=== PATIENT | female | born 1980 | race Caucasian/White ===

== ENCOUNTER 2020-06-12 17:51 | Emergency (ER) | payer OTHER ==
[~2020-06-12] VITALS: Ht 160 cm; Wt 94.9 kg
[2020-06-12 18:07] VITALS: BP 137/80
[2020-06-12] MEDS ORDERED: ACETAMINOPHEN 325 MG TABLET PO ONE (19:00)
--- NOTE | 2020-06-12 19:21 | RAD ---
Exam: Right ankle 3 views INDICATION: Right lateral malleolus TECHNIQUE: Frontal, lateral and oblique views of the right ankle. Comparisons: None FINDINGS: Bone mineralization is normal. No acute or healed fractures. Soft tissues are unremarkable. Joint spaces are well-maintained. IMPRESSION: No acute osseous abnormality. Electronically signed by: Rufus Pedro MD (06/12/2020 7:18 PM) [facility]
--- NOTE | 2020-06-12 20:15 | PHYS DOC ---
Past History Past Medical History: No Pertinent History Past Surgical History: Other Additional Past Surgical Histo: WISDOM TEETH, TUBES IN EARS Alcohol Use: Rarely Adult General Chief Complaint Chief Complaint: FOOT INJURY PAIN HPI HPI Patient is a 40-year-old female who presents via POV for right foot pain. Patient reports onset was earlier today while at work. 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 This pain waxed and waned throughout the day without any obvious or known provocation factors. Patient took Advil at home with minimal relief in symptomology. She does report being extremely active and has been training for a running race recently, she admits steadily increasing her weekly miles ran. Patient has no neurologic findings, changes in motor or sensory function, mildly decreased range of motion due to pain otherwise no other concerning findings Review of Systems Review of Systems Fourteen body systems of review of systems have been reviewed. See HPI for pertinent positives and negative responses, other dee all other systems are negative, non-pertinent or non-contributory Current Medications Current Medications Current Medications Medications (Trade) Dose Ordered Sig/Mary Alice Start Time Stop Time Status Last Admin Dose Admin Acetaminophen (Tylenol) 650 mg 1X ONCE 06/12/20 19:00 06/12/20 19:37 DC 06/12/20 19:25 650 MG Physical Exam Physical Exam Constitutional: Well developed, well nourished, no acute distress, non-toxic appearance. HENT: Normocephalic, atraumatic, bilateral external ears normal, oropharynx moist, no oral exudates, nose normal. Eyes: PERRLA, EOMI, conjunctiva normal, no discharge. Neck: Normal range of motion, no tenderness, supple, no stridor. Cardiovascular: Heart rate regular, sinus rhythm, no murmurs rubs or gallops Lungs & Thorax: Bilateral breath sounds clear to auscultation Abdomen: Bowel sounds normal, soft, no tenderness, no masses, no pulsatile masses. Nonsurgical abdomen, no peritoneal signs Skin: Warm, dry, no erythema, no rash. Back: No tenderness, no CVA tenderness. Extremities: No cyanosis, no clubbing, ROM intact, no edema. Foot and Ankle Proximal Tibia nontender Medial malleolus nontender Right lateral malleolus tender to palpation Calcaneus nontender Tarsometatarsal region nontender Base of 5th nontender Rest of foot and ankle without marked tenderness Varus and Valgus Stress of ankle joint without significant laxity Full Range of Motion with full strength Skin on plantar section of midfoot without ecchymosis Capillary refill <2seconds and distal Sensation to light touch in tact per routine Compartments surrounding are soft Neurologic: Alert and oriented X 3, grossly normal motor & sensory function, no focal deficits noted. Psychologic: Affect normal, judgement normal, mood normal. Current Patient Data Vital Signs Vital Signs Date Time Temp Pulse Resp B/P (MAP) Pulse Ox O2 Delivery O2 Flow Rate FiO2 06/12/20 18:07 97.2 90 18 137/80 (99) 96 Room Air EKG EKG [] Radiology/Procedures Radiology/Procedures PROCEDURE: ANKLE RIGHT 3V Exam: Right ankle 3 views INDICATION: Right lateral malleolus TECHNIQUE: Frontal, lateral and oblique views of the right ankle. Comparisons: None FINDINGS: Bone mineralization is normal. No acute or healed fractures. Soft tissues are unremarkable. Joint spaces are well-maintained. IMPRESSION: No acute osseous abnormality. Electronically signed by: Rufus Pedro MD (06/12/2020 7:18 PM) [facility] Course & Med Decision Making Course & Med Decision Making Overall well-appearing ambulatory patient seen on ER arrival ABCs nonconcerning Comprehensive history and physical exam obtained, [place] ankle rule positive prompting radiographs that were ultimately negative Discussed most likely diagnosis of ankle sprain versus strain that is musculoskeletal in nature, low risk for any acute bony abnormalities or other concerning pathology I advised patient for continued supportive care at home with close PCP follow-up in outpatient setting with consideration for physical therapy Strict return precautions were discussed with good understanding by patient, all questions and concerns addressed prior to ER departure in stable condition Dragon Disclaimer Dragon Disclaimer This electronic medical record was generated, in whole or in part, using a voice recognition dictation system. Departure Departure: Impression: Primary Impression: Right ankle injury Disposition: 01 DC HOME SELF CARE/HOMELESS Condition: STABLE Referrals: PCP,NO (PCP) Patient Instructions: Ankle Exercises (for Rehabilitation), RICE - Routine Care for Injuries Additional Instructions: As discussed prior to ER departure, please call your primary care physician first thing tomorrow morning to schedule outpatient follow-up in upcoming 3 to 7 days Please continue outpatient supportive care and exercises as instructed If concerning signs or symptoms present prior to seeing your primary care physician, please do not hesitate to call our ER and/or represent for formal evaluation It was a pleasure to take care of you this evening and I wish you a speedy recov sara! YOHAN CONTRERAS DO Jun 12, 2020 20:15
== END 2020-06-12 20:20 | disposition home or self-care (01) ==
LOC: ER 17:51
DX: S99.911A Unspecified injury of right ankle, initial encounter (principal); X50.9XXA Other and unspecified overexertion or strenuous movements or postures, initial encounter; Y93.89 Activity, other specified; Y92.89 Other specified places as the place of occurrence of the external cause; Y99.0 Civilian activity done for income or pay
CPT/HCPCS: 73610; 99283

== ENCOUNTER 2020-09-28 16:40 | Emergency (ER) | payer OTHER ==
[~2020-09-28] VITALS: Ht 160 cm; Wt 91.8 kg
[2020-09-28 17:34] VITALS: BP 137/97
[2020-09-28] MEDS ORDERED: CYCL-331 PO (18:19)
--- NOTE | 2020-09-28 18:19 | PHYS DOC ---
Past History Past Medical History: Anxiety, Fibromyalgia (ABBY LEONG APRN) Past Surgical History: No Surgical History Additional Past Surgical Histo: WISDOM TEETH, TUBES IN EARS (ABBY LEONG APRN) Alcohol Use: None (ABBY LEONG APRN) General Adult EDM: Chief Complaint: LOWER EXT PAIN HPI: HPI: Patient is a 40-year-old female presents with left lower calf pain. Patient states that pain started today. Denies injury to left leg. No swelling or redness to the area. Patient states that she was outside with her dog when all of a sudden she had a sharp pain in her left calf. Patient states that she has not been unable to bear weight since then. Patient reports taking ibuprofen this morning for pain with little relief. (ABBY LEONG APRN) Review of Systems: Review of Systems: Constitutional: Denies fever or chills Eyes: Denies change in visual acuity HENT: Denies nasal congestion or sore throat Respiratory: Denies cough or shortness of breath Cardiovascular: Denies chest pain or edema GI: Denies abdominal pain, nausea, vomiting, bloody stools or diarrhea : Denies dysuria Musculoskeletal: Left calf pain, no redness, no swelling Integument: Denies rash Neurologic: Denies headache, focal weakness or sensory changes Endocrine: Denies polyuria or polydipsia Lymphatic: Denies swollen glands Psychiatric: Denies depression or anxiety (ABBY LEONG APRN) Physical Exam: PE: Constitutional: Well developed, well nourished, no acute distress, non-toxic appearance. [] HENT: Normocephalic, atraumatic, bilateral external ears normal, oropharynx moist, no oral exudates, nose normal. [] Eyes: PERRLA, EOMI, conjunctiva normal, no discharge. [] Neck: Normal range of motion, no tenderness, supple, no stridor. [] Cardiovascular:Heart rate regular rhythm, no murmur [] Lungs & Thorax: Bilateral breath sounds clear to auscultation [] Abdomen: Bowel sounds normal, soft, no tenderness, no masses, no pulsatile masses. [] Skin: Warm, dry, no erythema, no rash. [] Back: No tenderness, no CVA tenderness. [] Extremities: No tenderness, no cyanosis, no clubbing, ROM intact, no edema. [] Neurologic: Alert and oriented X 3, normal motor function, normal sensory function, no focal deficits noted. [] Psychologic: Affect normal, judgement normal, mood normal. [] (ABBY LEONG APRN) Current Patient Data: Vital Signs: Vital Signs Date Time Temp Pulse Resp B/P (MAP) Pulse Ox O2 Delivery O2 Flow Rate FiO2 09/28/20 17:34 98.1 79 16 137/97 (110) 98 (ABBY LEONG APRN) EKG: EKG: [] (ABBY LEONG APRN) Radiology/Procedures: Radiology/Procedures: [] (ABBY LEONG APRN) Heart Score: Risk Factors: Risk Factors: DM, Current or recent (<one month) smoker, HTN, HLP, family history of CAD, obesity. Risk Scores: Score 0 - 3: 2.5% MACE over next 6 weeks - Discharge Home Score 4 - 6: 20.3% MACE over next 6 weeks - Admit for Clinical Observation Score 7 - 10: 72.7% MACE over next 6 weeks - Early Invasive Strategies (ABBY LEONG APRN) Course & Med Decision Making: Course & Med Decision Making Pertinent Labs and Imaging studies reviewed. (See chart for details) [ Patient is a 40-year-old female presents with left lower calf pain. Patient states that pain started today. Denies injury to left leg. No swelling or redness to the area. Patient states that she was outside with her dog when all of a sudden she had a sharp pain in her left calf. Patient states that she has not been unable to bear weight since then. Patient reports taking ibuprofen this morning for pain with little relief. No swelling, no redness. Patient denies injury to area. Send home with rice instructions, crutches, Flexeril for muscle strain. Take ibuprofen and Tylenol for discomfort.] (ABBY LEONG APRN) Dragon Disclaimer: Dragon Disclaimer: This electronic medical record was generated, in whole or in part, using a voice recognition dictation system. (ABBY LEONG APRN) Departure Departure: Impression: Primary Impression: Muscle strain Disposition: 01 DC HOME SELF CARE/HOMELESS Condition: GOOD Referrals: LIANET BENJAMIN DO (PCP) Patient Instructions: Muscle Strain, [id number] Additional Instructions: You were seen in the emergency room for left calf pain. Please make sure to rest, elevate, and ice to area. Ibuprofen and Tylenol for discomfort and pain. I am sending you home with Flexeril to help with pain as well. Please return the emergency room with worsening symptoms or concerns such as increase in pain, swelling and redness to area. EMERGENCY DEPARTMENT GENERAL DISCHARGE INSTRUCTIONS Thank you for coming to [facility] (ED) today and trusting us with you care. We trust that you had a positivie experience in our Emergency Department. If you wish to speak to the department management, you may call the director at [phone]. YOUR FOLLOW UP INSTRUCTIONS ARE FOLLOWS: 1. Do you have a private Doctor? If you do not have a private doctor, please ask for a resource list of physicians or clinics that may be able to assist you with follow up care. 2. The Emergency Physician has interpreted your x-rays. The X-Ray specialist will also review them. If there is a change in the findings, you will be notified in 48 hours when at all possible. 3. A lab test or culture has been done, your results will be reviewed and you will be notified if you need a change in treatment. ADDITIONAL INSTRUCTIONS AND INFORMATION: 1. Your care today has been supervised by a physician who is specially trained in emergency care. Many problems require more than one evaluation for a complete diagnosis and treatment. We recommend that you schedule your follow up appointment as recommended to ensure complete treatment of you illness or injury. If you are unable to obtain follow up care and continue to have a problem, or if your condition worsens, we recommend that you return to the ED. 2. We are not able to safely determine your condition over the phone nor are we able to give sound medical advice over the phone. For these safety reasons, if you call for medical advice we will ask you to come to the ED for further evaluation. 3. If you have any questions regarding these discharge instructions please call the ED at [phone]. SAFETY INFORMATION: In the interest of safety, wellness, and injury prevention; we encourage you to wear your sealbelt, if you smoke; quite smoking, and we encourage family to use a protective helmet for bicycling and other sporting events that present an increased risk for head injury. IF YOUR SYMPTOMS WORSEN OR NEW SYMPTOMS DEVELOP, OR YOU HAVE CONCERNS ABOUT YOUR CONDITION; OR IF YOUR CONDITION WORSENS WHILE YOU ARE WAITING FOR YOUR FOLLOW UP APPOINTMENT; EITHER CONTACT YOUR PRIMARY CARE DOCTOR, THE PHYSICIAN WHOSE NAME AND NUMBER YOU WERE GIVEN, OR RETURN TO THE ED IMMEDIATELY. Scripts Cyclobenzaprine Hcl (CYCLOBENZAPRINE HCL) 10 Mg Tablet 10 MG PO TID PRN PRN for PAIN for 7 Days, TAB Prov: ABBY LEONG APRN 09/28/20 Attending Signature Attending Signature I have reviewed the PA/COMMUTATOR INSPECTOR's note and plan of care. I was available for consultation as needed during the patient's visit in the emergency department. I agree with the clinical impression, plan, and disposition. (JACINTO CAVAZOS DO) ABBY LEONG APRN Sep 28, 2020 18:19 JACINTO CAVAZOS DO Sep 29, 2020 08:00
[2020-09-28] MEDS ORDERED: ACETAMINOPHEN 500 MG TABLET PO ONE (18:45)
== END 2020-09-28 18:21 | disposition home or self-care (01) ==
LOC: ER 16:40
DX: S86.912A Strain of unspecified muscle(s) and tendon(s) at lower leg level, left leg, initial encounter (principal); F41.9 Anxiety disorder, unspecified; M79.7 Fibromyalgia; X58.XXXA Exposure to other specified factors, initial encounter; Y93.89 Activity, other specified; Y92.89 Other specified places as the place of occurrence of the external cause; Y99.8 Other external cause status
CPT/HCPCS: 99283

== ENCOUNTER 2021-02-20 12:08 | Emergency (ER) | payer OTHER ==
[~2021-02-20] VITALS: Ht 91.4 cm; Wt 86.0 kg
[~2021-02-20 12:08] MED LIST: CYCL-331 PO
[2021-02-20] MEDS ORDERED: LIDOCAINE/EPI/TETRACAINE TOPICAL GEL 3 ML. TP ONE (12:45)
[2021-02-20] MEDS ORDERED: AMOXICILLIN/K CLAV 875/125MG TABLET. PO ONE (12:45)
[2021-02-20] MEDS ORDERED: DIPH,PERTUSS(ACELL),TET VAC/PF 0.5 ML SYRINGE. VAX IM ONE (13:00)
[2021-02-20] MEDS ORDERED: LIDOCAINE 1% PF 30 ML VIAL. INJ ONE (13:30)
[2021-02-20] MEDS ORDERED: BACITRACIN ZINC TOPICAL OINT PACKET. TP ONE ×2 (13:56→14:15)
[2021-02-20] MEDS ORDERED: AMOX1TAB61 PO (14:02)
[2021-02-20] MEDS ORDERED: FLUC150T PO (14:02)
--- NOTE | 2021-02-20 14:02 | PHYS DOC ---
Past History Past Medical History: Anxiety, Fibromyalgia Past Surgical History: No Surgical History Additional Past Surgical Histo: WISDOM TEETH, TUBES IN EARS Alcohol Use: None Adult General Chief Complaint Chief Complaint: ANIMAL BITE HPI HPI Patient is a 41-year-old female who presents to the emergency department with a chief complaint of being bit on the lower lip by a dog at approximately 11 AM today. 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 Patient reports that the dog is new to the penitentiary and became startled when he bit her lower lip. Patient reports her last tetanus immunization was 8 or 9 years ago. Patient reports a 6 out of 10 pain. Patient denies any other injury to her body. Patient reports an allergy to aspirin and Toradol. Patient reports a past medical history of bipolar depression and fibromyalgia, states she takes Lamictal, Lunesta, Klonopin, Trental X. Patient denies any other physical complaints or physical concerns. Review of Systems Review of Systems 14 body systems of review of systems have been reviewed. See HPI for pertinent positives and negative responses, otherwise all other systems are negative, nonpertinent or noncontributory. Current Medications Current Medications Current Medications Medications (Trade) Dose Ordered Sig/Mary Alice Start Time Stop Time Status Last Admin Dose Admin Amoxicillin/ Clavulanate Potassium (Augmentin 875/ 125mg) 1 tab 1X ONCE 02/20/21 12:45 02/20/21 12:54 DC Diphtheria/ Pertussis/Tetanus Vacc (ADACEL TDap SYRINGE) 0.5 ml ONCE ONCE 02/20/21 13:00 02/20/21 13:01 DC 02/20/21 12:54 0.5 ML Lidocaine HCl (Lidocaine 1% Pf) 30 ml 1X ONCE 02/20/21 13:30 02/20/21 13:34 DC Lidocaine/ Epinephrine (Let (Yhmj-[id number]-Nblxh) Gel) 3 ml 1X ONCE 02/20/21 12:45 02/20/21 12:46 DC 02/20/21 12:54 3 ML Allergies Allergies Allergies Coded Allergies Type Severity Reaction Last Updated Verified aspirin Allergy Unknown 02/20/21 Yes Physical Exam Physical Exam Constitutional: Well developed, well nourished, no acute distress, non-toxic appearance. 41-year-old female in no apparent distress. HENT: Normocephalic, atraumatic, bilateral external ears normal, oropharynx j[address] [facility], no oral exudates, nose normal. Except for lower lip, please see skin note for focused assessment. Eyes: Conjunctiva normal, no discharge appreciated. Neck: Normal range of motion. Cardiovascular: No cyanosis appreciated, distal cap refill less than 2 seconds. Lungs & Thorax: Patient is in no obvious respiratory distress, no audible adventitious lung sounds appreciated. Skin: Warm, dry, no erythema, no rash. Patient has puncture wound/laceration with skin avulsion of lower lip center aspect inner lip tubercle area only, does not extend to the vermilion border or inner lip mucosa. The laceration is 4 mm x 4 mm stellate shaped in nature, bleeding controlled with direct pressure applied by patient with bandage. No loss of sensation or movement of the lower lip. The puncture wound does not extend through the lip. Back: No tenderness. Extremities: No tenderness, no cyanosis, no clubbing, ROM intact, no edema. Neurologic: Alert and oriented X 3, normal motor function, normal sensory function, no focal deficits noted. Psychologic: Affect normal, judgement normal, mood normal. Current Patient Data Vital Signs Vital Signs Date Time Temp Pulse Resp B/P (MAP) Pulse Ox O2 Delivery O2 Flow Rate FiO2 02/20/21 12:12 97.9 80 18 148/91 (110) 100 Room Air EKG EKG [] Radiology/Procedures Radiology/Procedures [] Heart Score C/O Chest Pain: No Risk Factors: Risk Factors: DM, Current or recent (<one month) smoker, HTN, HLP, family history of CAD, obesity. Risk Scores: Risk Factors: DM, Current or recent (<one month) smoker, HTN, HLP, family history of CAD, obesity. Course & Med Decision Making Course & Med Decision Making Pertinent Labs and Imaging studies reviewed. (See chart for details) [] Dragon Disclaimer Dragon Disclaimer This electronic medical record was generated, in whole or in part, using a voice recognition dictation system. 41-year-old female, vital signs reviewed, presents emergency department for repair of dog bite laceration to lower lip. The patient's tetanus immunization was greater than 5 years ago, the patient's tetanus was brought up-to-date today in the emergency department with Adacel Tdap., Topical LET placed for laceration anesthetization, augmented with 1% lidocaine without, gave 1 Augmentin antibiotic tablet for infection prophylaxis. See laceration repair note. Patient gave verbal understanding of discharge home instructions, laceration care, follow-up with PCP for wound evaluation, signs symptoms of infectious process, home medication use, return to emergency department precautions or concerns, patient had no further questions or concerns and patient was discharged home without incident. Laceration Repair Lac Repair Indication: Puncture wound/laceration to lower lip. Procedure: The patient was placed in the appropriate position and anesthesia around the was achieved with topical LET and augmented with 1/2 cc 1% lidocaine without epinephrine. The area was then Betadine solution and cleansed with normal saline, the laceration was explored, there were no foreign bodies. The laceration was closed loosely with 3 interrupted dissolvable 5-0 Vicryl sutures. The wound area was then dressed with bacitracin by ED nursing staff.. Total repaired wound length: 4 mm. Other Items: The patient tolerated the procedure wel. Complications: The patient had a vagal vasal episode during the initial activities of the procedure, the patient recovered quickly and was then moved to a room with a bed by ED nursing staff, the puncture wound/laceration was stellate in nature requiring more than 1 Vicryl suture for closure, related to the nature of the injury, the wound was loosely closed together to help prevent infectious process from dog bite. Departure Departure: Impression: Primary Impression: Dog bite Additional Impressions: Laceration of lower lip with complication Need for DTaP vaccination Disposition: 01 HOME / SELF CARE / HOMELESS Condition: GOOD Referrals: LIANET BENJAMIN DO (PCP) Patient Instructions: Animal Bite, Facial Laceration Additional Instructions: You were seen today in the emergency department for a dog bite/laceration to your lower lip. I placed 3 dissolvable sutures that do not need removal to help hold the wound edges closer together. Please apply antibiotic ointment 3 times a day and keep clean. Because this was a dog bite, I have started you on an antibiotic called Augmentin that you will take twice a day for 5 days. Your tetanus status was brought up-to-date today in the emergency department with a medication called Adacel/Tdap. Please tyrese your records accordingly. Please follow-up with your primary care physician for a reevaluation of your lip wound. Please return to the emergency department for worsening symptoms or other concerns. EMERGENCY DEPARTMENT GENERAL DISCHARGE INSTRUCTIONS Thank you for coming to [facility] (ED) today and trusting us with you care. We trust that you had a positivie experience in our Emergency Department. If you wish to speak to the department management, you may call the director at [phone]. YOUR FOLLOW UP INSTRUCTIONS ARE FOLLOWS: 1. Do you have a private Doctor? If you do not have a private doctor, please ask for a resource list of physicians or clinics that may be able to assist you with follow up care. 2. The Emergency Physician has interpreted your x-rays. The X-Ray specialist will also review them. If there is a change in the findings, you will be notified in 48 hours when at all possible. 3. A lab test or culture has been done, your results will be reviewed and you will be notified if you need a change in treatment. ADDITIONAL INSTRUCTIONS AND INFORMATION: 1. Your care today has been supervised by a physician who is specially trained in emergency care. Many problems require more than one evaluation for a complete diagnosis and treatment. We recommend that you schedule your follow up appointment as recommended to ensure complete treatment of you illness or injury. If you are unable to obtain follow up care and continue to have a problem, or if your condition worsens, we recommend that you return to the ED. 2. We are not able to safely determine your condition over the phone nor are we able to give sound medical advice over the phone. For these safety reasons, if you call for medical advice we will ask you to come to the ED for further evaluation. 3. If you have any questions regarding these discharge instructions please call the ED at [phone]. SAFETY INFORMATION: In the interest of safety, wellness, and injury prevention; we encourage you to wear your sealbelt, if you smoke; quite smoking, and we encourage family to use a protective helmet for bicycling and other sporting events that present an increased risk for head injury. IF YOUR SYMPTOMS WORSEN OR NEW SYMPTOMS DEVELOP, OR YOU HAVE CONCERNS ABOUT YOUR CONDITION; OR IF YOUR CONDITION WORSENS WHILE YOU ARE WAITING FOR YOUR FOLLOW UP APPOINTMENT; EITHER CONTACT YOUR PRIMARY CARE DOCTOR, THE PHYSICIAN WHOSE NAME AND NUMBER YOU WERE GIVEN, OR RETURN TO THE ED IMMEDIATELY. Scripts Fluconazole (DIFLUCAN) 150 Mg Tablet 1 TAB PO ONCE for yeast infection, #1 TAB 1 Refill Prov: JACINTO TENA APRN 02/20/21 Amoxicillin/Potassium Clav (AUGMENTIN 875-125 TABLET) 1 Each Tablet 1 TAB PO BID for animal bite for 5 Days, #10 TAB 0 Refills Prov: JACINTO TENA APRN 02/20/21 Problem Qualifiers Primary Impression: Dog bite Encounter type: initial encounter Qualified Codes: W54.0XXA - Bitten by dog, initial encounter Additional Impressions: Laceration of lower lip with complication Encounter type: initial encounter Qualified Codes: S01.511A - Laceration w ithout foreign body of lip, initial encounter JACINTO TENA TRACE CLERK Feb 20, 2021 14:02
[2021-02-20 14:05] VITALS: BP 129/70
== END 2021-02-20 14:11 | disposition home or self-care (01) ==
LOC: ER 12:08
DX: S01.511A Laceration without foreign body of lip, initial encounter (principal); Z23 Encounter for immunization; Z88.6 Allergy status to analgesic agent; W54.0XXA Bitten by dog, initial encounter; Y93.89 Activity, other specified; Y92.89 Other specified places as the place of occurrence of the external cause; Y99.8 Other external cause status
CPT/HCPCS: 12011; 90471; 90715; 99284-25